=== PATIENT | female | born 2000 | race Caucasian/White ===

== ENCOUNTER 2019-10-22 01:26 | Inpatient (IN) | payer OTHER ==
[~2019-10-22 01:26] MED LIST: Buffered Lidocaine 1% SYRIN* 1 ML/SYRINGE INTRADERM ONE
[2019-10-22] MEDS ORDERED: Lactated Ringers 1000 ML Bag* 1,000 ML IV SCH ×2 (06:00→10:00)
[2019-10-22] MEDS ORDERED: Sodium Citrate/Citric Acid* 15 ML UDC PO ONE (06:00)
[2019-10-22] MEDS ORDERED: OXYTOCIN* 10 UNITS/ML 1 ML VIAL ONE (07:13)
[2019-10-22] MEDS ORDERED: Phenylephrine 40 MCG/ML SYRINGE ONE (07:13)
[2019-10-22] MEDS ORDERED: Morphine PF AMP (0.5MG/ML)* 5 MG/10 ML AMP ONE (07:14)
[2019-10-22] MEDS ORDERED: ceFOXitin 2 GM IVPREMIX* 2 GM/50 ML BAG ONE (07:23)
[2019-10-22] MEDS ORDERED: EPHEDrine (Pressors)* 50 MG/ML VIAL ONE (08:29)
[2019-10-22] MEDS ORDERED: Ondansetron INJ* 2 MG/ML VIAL ONE (08:32)
[2019-10-22] MEDS ORDERED: Scopolamine 1.5 mg* PATCH ONE (08:49)
[2019-10-22] MEDS ORDERED: Ketorolac INJ* 30 MG/ML 1 ML VIAL ONE (09:07)
[2019-10-22] MEDS ORDERED: Naloxone* 0.4 MG/ML 1 ML VIAL IV PRN ×2 (09:38→09:40)
[2019-10-22] MEDS ORDERED: fentaNYL* 50 MCG/ML 2 ML VIAL (100 MCG VIAL) IV PRN (09:38)
[2019-10-22] MEDS ORDERED: Ondansetron INJ* 2 MG/ML VIAL IV PRN ×2 (09:38→09:40)
[2019-10-22] MEDS ORDERED: oxyCODONE/Acetamin 5/325 MG* TAB PO PRN ×2 (09:40)
[2019-10-22] MEDS ORDERED: Nalbuphine* 10 MG/ML 1 ML VIAL IV PRN (09:40)
[2019-10-22] MEDS ORDERED: Glycerin ADULT SUPP PR PRN (09:41)
[2019-10-22] MEDS ORDERED: Dibucaine 1% 28.35 GM TUBE PR PRN (09:41)
[2019-10-22] MEDS ORDERED: Witch Hazel PAD* JAR TOPICAL PRN (09:41)
[2019-10-22] MEDS ORDERED: Oxytocin in LR* 20 UNITS/1,000 ML BAG IVPB SCH (10:00)
[2019-10-22] MEDS: diPHENhydraMINE IV* 50 MG/ML 1 ml VIAL (BENADRYL) IV PRN ×2 (10:31→16:20)
--- NOTE | 2019-10-22 13:16 | OP ---
DICTATION ENDS ABRUPTLY - FULLY REDICTATED DATE OF OPERATION: 10/22/19 - ROOM #117 DATE OF : [birth year] SURGEON: Dr. Venessa Horton. SET O TYPE OPERATOR: Connie Metz CNM ANESTHESIOLOGIST: Dr. Campos. ANESTHESIA: Spinal. PRE-OP DIAGNOSIS: Intrauterine , repeat section. POST-OP DIAGNOSIS: Intrauterine , repeat section, delivered. OPERATIVE PROCEDURE: Repeat low-transverse section with vacuum assist. ESTIMATED BLOOD LOSS: 600 cc. URINE OUTPUT: 100 cc of clear yellow urine. FLUIDS: 2650 cc of crystalloid. FINDINGS: Revealed a vertex male infant with 's 9 at 1 minute, 9 at 5 minutes, weight was 8 pounds 7 ounces. No nuchal cord. No meconium. Position of head was right occiput transverse. Normal-appearing tubes and ovaries bilaterally. Normal-appearing placenta. Three-vessel cord, manually extracted intact. DESCRIPTION OF PROCEDURE: DICTATION ENDS AT THIS POINT [id number]/[facility] #: [id number] [facility]
[2019-10-22] MEDS: Simethicone TAB* 80 MG TAB.CHEW PO SCH ×3 (13:17→21:38)
[2019-10-22] MEDS: Docusate CAP* 100 MG PO SCH ×2 (14:16→21:38)
[2019-10-22] MEDS: Ketorolac INJ* 30 MG/ML 1 ML VIAL IV PRN ×2 (15:25→21:38)
[2019-10-22 20:29] LABS: Urine Benzodiazepine Screen None Detected (None Detect); Urine Opiates Screen None Detected (None Detect)
--- NOTE | 2019-10-22 21:31 | OP ---
OPERATIVE REPORT: DATE OF OPERATION: 10/22/19 DATE OF : [birth year] SURGEON: Dr. Venessa Horton. [employer]INE OPERATOR: Connie Metz CNM ANESTHESIOLOGIST: Dr. Campos. ANESTHESIA: Spinal. PRE-OP DIAGNOSIS: Intrauterine , 39 weeks, desires repeat section. POST-OP DIAGNOSIS: Intrauterine , 39 weeks, desires repeat section, delivered. OPERATIVE PROCEDURE: Repeat low-transverse section, vacuum assist with delivery of head. ESTIMATED BLOOD LOSS: 600 cc. URINE OUTPUT: 100 cc of clear yellow urine. FLUIDS: 2650 cc of crystalloid. FINDINGS: Revealed a vertex male infant, is 9 at one minute, 9 at five minutes, weight was 8 p ounds 7 ounces. No nuchal cord. No meconium. ROT (right occiput transverse). Normal-appearing tub es and ovaries bilaterally. Normal- appearing placenta. Three-vessel cord, manually extracted intac t. COMPLICATIONS: None apparent. DISPOSITION: Stable to recovery room. DESCRIPTION OF PROCEDURE: The patient was placed in dorsal lithotomy position. Anesthesia was tested to appropriate level and the patient was identified with the universal protocol for a correct positi on, procedure, and patient. Incision was made through prior incision with a scalpel. This was naima ed down through to the fascia. Fascia was scored in the midline and extended laterally and superiorl y using curved Muñiz scissors. The fascia was superiorly and inferiorly with blunt and brittny p dissection, and the peritoneum was then entered bluntly and extended bluntly. Bladder blade was in serted. Lower uterine segment was identified, Allis was used to tent up on the lower uterine segment . Incision was carried down to create amniotomy. Clear fluid was noted. The incision was then exte nded laterally and superiorly using bandage scissors. Infant was found to be in right occiput transv erse. Attempt was made at delivery. Incision was extended. Attempt was made again at delivery of th e head and then at which point a vacuum was applied. At the first application, the vacuum would not develop any pressure and the second vacuum appeared to be functioning appropriately. The baby was th en delivered. Anterior and posterior shoulder delivered. Nuchal cord was not noted. Baby was allowe d to cry on the field and the cord was clamped after 1 minute with cord clamp and Lesli, and the cor d was then cut and the infant was handed off to awaiting fine dining server, Dr. Reynoso. Appropriate c ord blood was then obtained. Placenta was then manually extracted, noted to be intact and have a 3-ve ssel cord. The uterus was exteriorized, wrapped in a warm moist laparotomy sponge. The uterine cavit y was explored and noted to be free of any membranes or placental tissue. The uterine incision itsel f was then reapproximated in 2 layers, first layer running locked 0 Vicryl, second layer running imbr icated 0 Vicryl. Tubes and ovaries were noted to have a normal appearance. The uterus was returned intraabdominally. Colic gutters were lavaged. At that point, the hysterotomy site was noted to be h emostatic. The peritoneum was then reapproximated using 3-0 Vicryl in a continuous fashion. Subfasc ial area was visualized and hemostasis was assured. The fascia itself was then reapproximated using 0 Vicryl x2 in a running fashion. Subcu was lavaged. Hemostasis ensured and the Camper's fascia was reapproximated using 3-0 Vicryl in an interrupted fashion. The skin was then reapproximated using 4 -0 Monocryl in a subcuticular fashion. Mastisol and Steris were applied. All sponge, needle, instru ment, blade counts were correct throughout the case. The patient tolerated the procedure well and we nt to the recovery room in stable condition. [id number]/[facility] #: [id number]
[2019-10-23] MEDS ORDERED: Acetaminophen TAB* 325 MG PO PRN
[2019-10-23] MEDS ORDERED: oxyCODONE/Acetamin 5/325 MG* TAB PO PRN
[2019-10-23] MEDS: oxyCODONE/Acetamin 5/325 MG* TAB PO PRN ×4 (00:59→18:53)
[2019-10-23] MEDS: Ibuprofen TAB* 600 MG PO PRN ×3 (03:35→18:03)
[2019-10-23 07:02] LABS: ABS Basophils 0.1 10^3/ul (0-0.2); ABS Eosinophils 0.1 10^3/ul (0-0.6); ABS Lymphocytes 3.3 10^3/ul (1.0-4.8); ABS Monocytes 0.7 10^3/ul (0-0.8); Eosinophil % 0.7 %; Hematocrit 29 % (35-47); Hemoglobin 9.7 g/dL (12.0-16.0); Lymphocyte % 29.8 %; Mean Corpuscular HGB Conc 34 g/dL (31-36); Mean Corpuscular Hemoglobin 31 pg (27-31); Mean Corpuscular Volume 90 fL (80-97); Mean Platelet Volume 8.9 fL (7.4-10.4); Platelet Count 172 10^3/uL (150-450); Red Blood Count 3.19 10^6 /uL (3.70-4.87); Red Cell Distribution Width 15 % (10-15); White Blood Count 11.1 10^3/uL (3.5-10.8)
[2019-10-23] MEDS: Ferrous Gluconate TAB* 324 MG TAB PO SCH ×2 (07:38→19:22)
[2019-10-23] MEDS: Docusate CAP* 100 MG PO SCH ×3 (07:38→19:22)
[2019-10-23] MEDS: Simethicone TAB* 80 MG TAB.CHEW PO SCH ×3 (07:38→18:03)
[2019-10-23] MEDS ORDERED: Influenza VAC *QUAD* 2019-20* 0.5 ML SYRINGE IM ONE (09:00)
[2019-10-24] MEDS: oxyCODONE/Acetamin 5/325 MG* TAB PO PRN (04:12)
[2019-10-24] MEDS: Ibuprofen TAB* 600 MG PO PRN ×2 (04:12→09:47)
[2019-10-24] MEDS: Simethicone TAB* 80 MG TAB.CHEW PO SCH ×2 (06:20→09:47)
[2019-10-24 07:36] VITALS: BP 105/49
[2019-10-24] MEDS: Ferrous Gluconate TAB* 324 MG TAB PO SCH (09:47)
[2019-10-24] MEDS: Docusate CAP* 100 MG PO SCH (09:47)
[2019-10-25] MEDS ORDERED: Scopolamine PATCH Remove* 1 NOTE MISC PATCH OFF ONE (09:39)
== END 2019-10-24 11:50 | disposition home or self-care (01) | DRG 540 ==
LOC: MCHOB 06:11
PROVIDERS: ADMIT Obstetrics & Gynecology; ATTEND Obstetrics & Gynecology
PROC: 4A1HXCZ Monitoring of Products of Conception, Cardiac Rate, External Approach (ICD-10-PCS; 2019-10-22)
PROC: 10D00Z1 Extraction of Products of Conception, Low, Open Approach (ICD-10-PCS; principal; 2019-10-22 07:45)
DX: O34.211 Maternal care for low transverse scar from previous cesarean delivery (principal); O90.81 Anemia of the puerperium; J45.909 Unspecified asthma, uncomplicated; O99.52 Diseases of the respiratory system complicating childbirth; Z88.4 Allergy status to anesthetic agent; Z87.891 Personal history of nicotine dependence; Z3A.39 39 weeks gestation of pregnancy; Z37.0 Single live birth; Z23 Encounter for immunization
CPT/HCPCS: 36415; 80307; 85025; 90686; A9270-GY; G0480; J0694; J1200; J1885; J2405; J2590

== ENCOUNTER 2021-07-11 06:09 | Inpatient (IN) ==
[2021-07-11] MEDS ORDERED: Morphine PF AMP (0.5MG/ML) 5 MG/10 ML AMP ONE (07:07)
[2021-07-11] MEDS ORDERED: Ondansetron 4 mg VIAL 2 MG/ML 2 ml VIAL ONE (07:08)
[2021-07-11] MEDS ORDERED: Oxytocin 10 UNITS/ML 1 ML VIAL ONE (07:08)
[2021-07-11] MEDS ORDERED: DiMENhydriNATE IV 50 mg/ml 1 ml VIAL IV PUSH PRN (07:12)
[2021-07-11] MEDS ORDERED: fentaNYL 100 mcg/2 ml 50 MCG/ML VIAL IV PRN (07:12)
[2021-07-11] MEDS ORDERED: Naloxone 0.4 mg VIAL 0.4 mg/ml 1 ml VIAL IV PRN ×2 (07:12)
[2021-07-11] MEDS ORDERED: Ondansetron 4 mg VIAL 2 MG/ML 2 ml VIAL IV PRN (07:12)
[2021-07-11] MEDS ORDERED: Metoclopramide 5 MG/ML VIAL (10 mg) IV PRN (07:12)
[2021-07-11] MEDS ORDERED: Naloxone 4 mg VIAL (10 ml) 2 MG in NS 0.9% 250 ml 250 ML IV PRN (07:12)
[2021-07-11] MEDS ORDERED: ceFOXitin 2 GM IVPREMIX 2 GM/50 ML BAG ONE (07:13)
[2021-07-11] MEDS ORDERED: Buffered Lidocaine 1% SYRIN 1 ml INTRADERM ONE (07:41)
[2021-07-11] MEDS ORDERED: ceFOXitin 2 GM PREMIX 50 ML IVPB ONE (08:00)
[2021-07-11] MEDS ORDERED: Lactated Ringers 1000 ml BAG 1,000 ML IV SCH ×2 (08:00→10:00)
[2021-07-11] MEDS ORDERED: EPHEDrine (Pressors) 50 MG/ML VIAL ONE (08:43)
[2021-07-11] MEDS ORDERED: fentaNYL 100 mcg/2 ml 50 MCG/ML VIAL ONE (08:54)
[2021-07-11] MEDS ORDERED: Glycerin ADULT 2.4 gm SUPP PR PRN (09:37)
[2021-07-11] MEDS ORDERED: Witch Hazel PAD JAR TOPICAL PRN (09:37)
[2021-07-11] MEDS ORDERED: Acetaminophen IV 1 GM/100ML 100 ML IV PRN (09:59)
[2021-07-11] MEDS ORDERED: Acetaminophen IV 1 GM/100ML 100 ML IV ONE (10:00)
[2021-07-11 10:11] LABS: Urine Benzodiazepine Screen None Detected (None Detect); Urine Cannabinoids Screen Presumptive Positive (None Detect); Urine Opiates Screen None Detected (None Detect)
[2021-07-12 09:15] LABS: ABS Lymphocytes 2.1 10^3/ul (1.0-4.8); ABS Monocytes 0.6 10^3/ul (0-0.8); ABS Neutrophils 6.5 10^3/ul (1.5-7.7); Eosinophil % 0.4 %; Hematocrit 28 % (35-47); Hemoglobin 9.5 g/dL (12.0-16.0); Lymphocyte % 22.9 %; Mean Corpuscular HGB Conc 33 g/dL (31-36); Mean Corpuscular Hemoglobin 30 pg (27-31); Mean Corpuscular Volume 88 fL (80-97); Mean Platelet Volume 9.8 fL (7.4-10.4); Platelet Count 156 10^3/uL (150-450); Red Blood Count 3.22 10^6 /uL (3.70-4.87); Red Cell Distribution Width 15 % (10-15); White Blood Count 9.3 10^3/uL (3.5-10.8)
[2021-07-13 07:56] VITALS: BP 130/62
== END 2021-07-13 12:10 | disposition home or self-care (01) | DRG 540 ==
LOC: MCHOB 06:09
PROVIDERS: ADMIT Obstetrics & Gynecology; ATTEND Obstetrics & Gynecology